=== PATIENT | female | born 1950 | race Caucasian/White ===

== ENCOUNTER 2021-07-14 20:15 | Inpatient (IN) | payer MEDICARE ==
[~2021-07-14] VITALS: Ht 167.6 cm; Wt 104.0 kg
--- NOTE | 2021-07-14 21:11 | NUR ---
pt bib remsa with c/o sob and chills x 3 days with increased rr x today, estela reports family have been sick with cough cold s/s, no covid vacine.
[2021-07-14 21:20] LABS: BASOPHILS % (AUTO) 0 % (0-1); EOSINOPHILS % (AUTO) 0 % (1-7); LYMPHOCYTES % (AUTO) 5 % (22-44); MEAN CORPUSCULAR HGB CONC 33.3 g/dL (32.4-35.8); MEAN PLATELET VOLUME 7.7 fL (7.4-10.4); MONOCYTES % (AUTO) 5 % (2-9); NEUTROPHILS % (AUTO) 89 % (42-75); PLATELET COUNT 390 x10^3/uL (130-400); RED BLOOD COUNT 4.78 x10^6/uL (3.82-5.3); RED CELL DISTRIBUTION WIDTH 13.8 % (9.6-15.2)
[2021-07-14 21:36] LABS: ALANINE AMINOTRANSFERASE 27 U/L (12-78); ALBUMIN 1.9 g/dL (3.4-5.0); ANION GAP 6 mmol/L (5-15); CALCIUM 8.4 mg/dL (8.5-10.1); CHLORIDE 104 mmol/L (98-107); CREATININE 0.92 mg/dL (0.55-1.02)
[2021-07-14 21:43] LABS: ALKALINE PHOSPHATASE 143 U/L (45-117); BILIRUBIN,TOTAL 0.7 mg/dL (0.2-1.0); TOTAL PROTEIN 7.1 g/dL (6.4-8.2)
--- NOTE | 2021-07-14 22:03 | NUR ---
pt in nad at this time remains on 15 l NRB SATS 93%
[2021-07-14] MEDS ORDERED: DOXYCYCLINE 100 MG in DEXTROSE 5% 250 ML IV ONE (22:30)
[2021-07-14] MEDS ORDERED: LACTATED RINGERS 500 ML IVBOLUS ONE (22:30)
--- NOTE | 2021-07-14 22:49 | NUR ---
IV ABX INFUSING BLOOD CULTURES DRAWN PRIOR
[2021-07-15] MEDS ORDERED: ONDANSETRON 2MG/ML, 2ML IVPush PRN
[2021-07-15] MEDS ORDERED: ACETAMINOPHEN 325 MG TABLET PO PRN
[2021-07-15] MEDS ORDERED: LABETALOL 5MG/ML, 20ML IVPush PRN
[2021-07-15] MEDS ORDERED: MELATONIN 5 MG TABLET PO PRN
[2021-07-15 00:04] VITALS: BP 117/72
[2021-07-15 00:08] LABS: TROPONIN I < 0.015 ng/mL (0.000-0.045)
[2021-07-15] MEDS: CEFTRIAXONE 2 GM in DEXTROSE 5% 50 ML IVPB SCH (01:25)
[2021-07-15] MEDS: DEXAMETHASONE 4 MG/ML, 1ML IVPush SCH ×2 (01:27→08:57)
[2021-07-15] MEDS: ENOXAPARIN 40 MG/0.4 ML SQ SCH ×2 (01:30→12:54)
[2021-07-15 05:25] LABS: RAPID INFLUENZA A Negative (Negative); RAPID INFLUENZA B Negative (Negative)
[2021-07-15 05:40] LABS: BASOPHILS % (AUTO) 0 % (0-1); EOSINOPHILS % (AUTO) 0 % (1-7); LYMPHOCYTES % (AUTO) 5 % (22-44); MEAN CORPUSCULAR HEMOGLOBIN 29.9 pg (27.0-34.8); MEAN CORPUSCULAR HGB CONC 32.9 g/dL (32.4-35.8); MEAN PLATELET VOLUME 8.1 fL (7.4-10.4); MONOCYTES % (AUTO) 5 % (2-9); NEUTROPHILS % (AUTO) 90 % (42-75); PLATELET COUNT 378 x10^3/uL (130-400); RED BLOOD COUNT 4.51 x10^6/uL (3.82-5.3); RED CELL DISTRIBUTION WIDTH 13.6 % (9.6-15.2)
[2021-07-15 05:47] LABS: ANION GAP 6 mmol/L (5-15); CALCIUM 8.5 mg/dL (8.5-10.1); CHLORIDE 103 mmol/L (98-107)
[2021-07-15 08:15] VITALS: BP 118/70
[2021-07-15] MEDS: DOXYCYCLINE 100MG TABLET PO SCH ×2 (08:57→21:56)
[2021-07-15 14:37] LABS: ALBUMIN 1.7 g/dL (3.4-5.0); BILIRUBIN, DIRECT 0.2 mg/dL (0.1-0.2); BILIRUBIN,INDIRECT 0.2 mg/dL (0.0-2.0); BILIRUBIN,TOTAL 0.4 mg/dL (0.2-1.0); TOTAL PROTEIN 6.7 g/dL (6.4-8.2)
[2021-07-15 15:00] VITALS: BP 112/74
[2021-07-15] MEDS ORDERED: REMDESIVIR 200 MG in SODIUM CHLORIDE 0.9% 250 ML IVPB ONE (15:30)
[2021-07-15 18:48] VITALS: BP 107/71
[2021-07-15] MEDS: INSULIN LISPRO 100 UNITS/ML, PEN SQ-INSULIN SCH (21:57)
[2021-07-16 00:27] VITALS: BP 114/75
[2021-07-16] MEDS: ENOXAPARIN 40 MG/0.4 ML SQ SCH ×2 (00:29→14:06)
[2021-07-16] MEDS: CEFTRIAXONE 2 GM in DEXTROSE 5% 50 ML IVPB SCH (00:29)
[2021-07-16 05:46] LABS: BASOPHILS % (AUTO) 0 % (0-1); EOSINOPHILS % (AUTO) 0 % (1-7); LYMPHOCYTES % (AUTO) 7 % (22-44); MEAN CORPUSCULAR HEMOGLOBIN 30.3 pg (27.0-34.8); MEAN CORPUSCULAR HGB CONC 33.3 g/dL (32.4-35.8); MONOCYTES % (AUTO) 7 % (2-9); NEUTROPHILS % (AUTO) 86 % (42-75); PLATELET COUNT 464 x10^3/uL (130-400); RED BLOOD COUNT 4.43 x10^6/uL (3.82-5.3); RED CELL DISTRIBUTION WIDTH 13.7 % (9.6-15.2)
[2021-07-16 05:57] LABS: ANION GAP 7 mmol/L (5-15); CHLORIDE 105 mmol/L (98-107)
[2021-07-16 05:59] LABS: CREATININE 1.16 mg/dL (0.55-1.02)
[2021-07-16] MEDS: INSULIN LISPRO 100 UNITS/ML, PEN SQ-INSULIN SCH ×4 (08:00→20:33)
[2021-07-16] MEDS: DOXYCYCLINE 100MG TABLET PO SCH ×2 (09:00→20:33)
[2021-07-16] MEDS: DEXAMETHASONE 4 MG/ML, 1ML IVPush SCH (09:00)
[2021-07-16 09:35] VITALS: BP 106/72
[2021-07-16 12:25] VITALS: BP 122/68
[2021-07-16 14:19] LABS: ALANINE AMINOTRANSFERASE 51 U/L (12-78); ALBUMIN 1.9 g/dL (3.4-5.0)
[2021-07-16 14:21] LABS: ALKALINE PHOSPHATASE 137 U/L (45-117); BILIRUBIN,TOTAL 0.3 mg/dL (0.2-1.0); TOTAL PROTEIN 6.9 g/dL (6.4-8.2)
[2021-07-16] MEDS: REMDESIVIR 100 MG in SODIUM CHLORIDE 0.9% 250 ML IVPB SCH (16:00)
[2021-07-16 18:49] VITALS: BP 118/76
[2021-07-16 21:35] VITALS: BP 127/78
[2021-07-16 22:57] VITALS: BP 118/70
[2021-07-17] MEDS: ENOXAPARIN 40 MG/0.4 ML SQ SCH (00:46)
[2021-07-17] MEDS: CEFTRIAXONE 2 GM in DEXTROSE 5% 50 ML IVPB SCH ×2 (00:46→23:14)
[2021-07-17 05:34] LABS: CHLORIDE 108 mmol/L (98-107)
[2021-07-17 05:40] LABS: ALBUMIN 1.6 g/dL (3.4-5.0); ALKALINE PHOSPHATASE 126 U/L (45-117); BILIRUBIN,TOTAL 0.4 mg/dL (0.2-1.0); CALCIUM 8.6 mg/dL (8.5-10.1); CREATININE 1.06 mg/dL (0.55-1.02); TOTAL PROTEIN 6.9 g/dL (6.4-8.2)
[2021-07-17 05:51] LABS: ALANINE AMINOTRANSFERASE 54 U/L (12-78)
[2021-07-17 06:27] LABS: ANION GAP 7 mmol/L (5-15)
[2021-07-17 07:32] VITALS: BP 135/80
[2021-07-17] MEDS: INSULIN LISPRO 100 UNITS/ML, PEN SQ-INSULIN SCH ×4 (07:40→21:50)
[2021-07-17] MEDS: DEXAMETHASONE 4 MG/ML, 1ML IVPush SCH (08:02)
[2021-07-17] MEDS: DOXYCYCLINE 100MG TABLET PO SCH ×2 (08:02→21:49)
[2021-07-17] MEDS: ENOXAPARIN 60 MG/0.6 ML SQ SCH (12:02)
[2021-07-17] MEDS ORDERED: SODIUM CHLORIDE 0.9% 1,000 ML IV SCH (16:30)
[2021-07-17] MEDS: REMDESIVIR 100 MG in SODIUM CHLORIDE 0.9% 250 ML IVPB SCH (17:39)
[2021-07-17 19:05] VITALS: BP 147/81
[2021-07-17] MEDS: NYSTATIN 500,000 UNITS/5 ML UDC PO SCH (21:49)
[2021-07-17 22:52] VITALS: BP 137/84
[2021-07-18] MEDS: ENOXAPARIN 60 MG/0.6 ML SQ SCH ×2 (00:10→14:17)
[2021-07-18] MEDS: NYSTATIN 500,000 UNITS/5 ML UDC PO SCH ×4 (05:46→21:48)
[2021-07-18 06:17] LABS: MEAN CORPUSCULAR HEMOGLOBIN 30.3 pg (27.0-34.8); MEAN CORPUSCULAR HGB CONC 33.2 g/dL (32.4-35.8); MEAN PLATELET VOLUME 7.4 fL (7.4-10.4); PLATELET COUNT 558 x10^3/uL (130-400); RED BLOOD COUNT 4.65 x10^6/uL (3.82-5.3); RED CELL DISTRIBUTION WIDTH 13.9 % (9.6-15.2)
[2021-07-18 06:27] LABS: CHLORIDE 110 mmol/L (98-107)
[2021-07-18 06:30] LABS: ANION GAP 10 mmol/L (5-15); CREATININE 0.94 mg/dL (0.55-1.02)
[2021-07-18 06:54] LABS: BAND#(MANUAL) 0.33 x10^3/uL; BANDS%(MANUAL) 2 % (0-7); LYMPH#(MANUAL) 0.66 x10^3/uL (1-3.4); LYMPHS% (MANUAL) 4 % (22-44); METAMYELOCYTES# (MANUAL) 0.33 x10^3/uL (0-0); METAMYELOCYTES% (MANUAL) 2 % (0-1); MONOS#(MANUAL) 1.15 x10^3/uL (0.3-2.7); MONOS% (MANUAL) 7 % (2-9); SEG#(MANUAL) 13.94 x10^3/uL (1.8-6.8); SEGS% (MANUAL) 85 % (42-75)
[2021-07-18 06:55] LABS: <PLATELET ESTIMATE> INCREASED; <PLT MORPHOLOGY> NORMAL PLT MORPH; <RBC MORPHOLOGY> NORMAL
[2021-07-18 07:56] VITALS: BP 142/81
[2021-07-18] MEDS ORDERED: ETOMIDATE 20 MG/10 ML ONE ×2 (08:00→09:00)
[2021-07-18] MEDS ORDERED: PROPOFOL 10 MG/ML, 100ML IV ONE ×2 (08:00→09:00)
[2021-07-18] MEDS ORDERED: MIDAZOLAM 1 MG/ML, 5ML ONE ×2 (08:00→09:00)
[2021-07-18] MEDS ORDERED: PROPOFOL 10 MG/ML, 20ML ONE ×2 (08:00→09:00)
[2021-07-18] MEDS: ASCORBIC ACID 500 MG TABLET PO SCH ×3 (08:00→17:25)
[2021-07-18] MEDS: DEXAMETHASONE 4 MG/ML, 1ML IVPush SCH (08:51)
[2021-07-18] MEDS: CHOLECALCIFEROL 5,000u TAB PO SCH ×2 (08:51→09:00)
[2021-07-18] MEDS: ZINC SULFATE 220 MG CAPSULE PO SCH ×2 (08:51→09:00)
[2021-07-18] MEDS: INSULIN LISPRO 100 UNITS/ML, PEN SQ-INSULIN SCH ×4 (08:52→21:51)
[2021-07-18 10:21] LABS: CHLORIDE 112 mmol/L (98-107)
[2021-07-18 10:28] LABS: ANION GAP 9 mmol/L (5-15); CALCIUM 9.1 mg/dL (8.5-10.1); CREATININE 0.84 mg/dL (0.55-1.02)
[2021-07-18 10:29] LABS: ALANINE AMINOTRANSFERASE 40 U/L (12-78); ALBUMIN 1.9 g/dL (3.4-5.0); ALKALINE PHOSPHATASE 139 U/L (45-117); BILIRUBIN,TOTAL 0.4 mg/dL (0.2-1.0); TOTAL PROTEIN 6.7 g/dL (6.4-8.2)
[2021-07-18] MEDS ORDERED: LIDOCAINE-MPF 1%, 2ML ENDO PRN (11:00)
[2021-07-18] MEDS ORDERED: PHARMACY MAY ADJ FOR RENAL FX MC SCH (11:00)
[2021-07-18] MEDS ORDERED: ONDANSETRON 2MG/ML, 2ML IV PRN (11:00)
[2021-07-18] MEDS ORDERED: GLUCAGON 1 MG IM PRN (11:00)
[2021-07-18] MEDS ORDERED: FILTER 0.22 MICRON IV ONE (11:00)
[2021-07-18] MEDS ORDERED: DEXTROSE 4 GM TAB.CHEW PO PRN (11:00)
[2021-07-18] MEDS ORDERED: NOREPINEPHRINE 8 MG in SODIUM CHLORIDE 0.9% 242 ML IV PRN (11:00)
[2021-07-18] MEDS ORDERED: PROPOFOL 100 ML IV PRN (11:00)
[2021-07-18] MEDS ORDERED: DEXTROSE 50%, 50ML SYRINGE IVPush PRN (11:00)
[2021-07-18] MEDS ORDERED: TOCILIZUMAB 800 MG in SODIUM CHLORIDE 0.9% 100 ML IVPB ONE (11:00)
[2021-07-18] MEDS ORDERED: NOREPINEPHRINE 1 MG/ML, 4ML ONE (11:07)
[2021-07-18 11:32] LABS: FIO2 100 %
[2021-07-18] MEDS: MIDAZOLAM HCL 50 MG in SODIUM CHLORIDE 0.9% 40 ML IV PRN (12:13)
[2021-07-18] MEDS: SODIUM CHLORIDE FLUSH 10ML SYR IVF SCH ×2 (13:51→21:48)
[2021-07-18] MEDS: FENTANYL PF 1,000 MCG in SODIUM CHLORIDE 0.9% 80 ML IV PRN (14:18)
[2021-07-18] MEDS ORDERED: POTASSIUM CHLORIDE 20 MEQ PACKET PO SCH (15:30)
[2021-07-18] MEDS ORDERED: INSULIN LISPRO 100 UNITS/ML, PEN SQ-INSULIN SCH (16:00)
[2021-07-18] MEDS: REMDESIVIR 100 MG in SODIUM CHLORIDE 0.9% 250 ML IVPB SCH (17:22)
[2021-07-18] MEDS: FUROSEMIDE 40 MG/4 ML IV SCH (17:25)
[2021-07-18] MEDS ORDERED: GLYCOPYRROLATE 0.4 MG/2 ML, 2ML IV ONE ×2 (20:30→21:30)
[2021-07-18] MEDS ORDERED: INSULIN GLARGINE 100 UNITS/ML, PEN SQ-INSULIN SCH (21:00)
[2021-07-19] MEDS: ENOXAPARIN 60 MG/0.6 ML SQ SCH ×2 (00:01→13:07)
[2021-07-19] MEDS: CEFTRIAXONE 2 GM in DEXTROSE 5% 50 ML IVPB SCH (00:01)
[2021-07-19] MEDS: MIDAZOLAM HCL 50 MG in SODIUM CHLORIDE 0.9% 40 ML IV PRN ×2 (00:02→06:04)
[2021-07-19] MEDS: INSULIN LISPRO 100 UNITS/ML, PEN SQ-INSULIN SCH ×4 (05:09→21:22)
[2021-07-19] MEDS: NYSTATIN 500,000 UNITS/5 ML UDC PO SCH ×4 (05:42→21:22)
[2021-07-19 05:49] LABS: BASOPHILS % (AUTO) 0 % (0-1); EOSINOPHILS % (AUTO) 0 % (1-7); LYMPHOCYTES % (AUTO) 8 % (22-44); MEAN CORPUSCULAR HGB CONC 32.9 g/dL (32.4-35.8); MEAN PLATELET VOLUME 7.6 fL (7.4-10.4); MONOCYTES % (AUTO) 3 % (2-9); NEUTROPHILS % (AUTO) 88 % (42-75); PLATELET COUNT 441 x10^3/uL (130-400); RED BLOOD COUNT 4.02 x10^6/uL (3.82-5.3); RED CELL DISTRIBUTION WIDTH 13.7 % (9.6-15.2)
[2021-07-19 05:55] LABS: ALBUMIN 1.5 g/dL (3.4-5.0); CALCIUM 8.5 mg/dL (8.5-10.1); CHLORIDE 112 mmol/L (98-107)
[2021-07-19 06:01] LABS: ALANINE AMINOTRANSFERASE 29 U/L (12-78); ALKALINE PHOSPHATASE 108 U/L (45-117); ANION GAP 8 mmol/L (5-15); BILIRUBIN,TOTAL 0.3 mg/dL (0.2-1.0); CREATININE 1.12 mg/dL (0.55-1.02); TOTAL PROTEIN 5.6 g/dL (6.4-8.2)
[2021-07-19] MEDS ORDERED: ATROPINE SYRINGE 0.1 MG/ML, 10ML ONE (08:16)
[2021-07-19] MEDS ORDERED: DOPAMINE/D5W PMX 250 ML IV PRN (08:30)
[2021-07-19] MEDS ORDERED: ATROPINE SYRINGE 0.1 MG/ML, 10ML IVPush PRN (08:30)
[2021-07-19] MEDS: ASCORBIC ACID 500 MG TABLET PO SCH ×2 (08:55→18:48)
[2021-07-19] MEDS: CHOLECALCIFEROL 5,000u TAB PO SCH (08:55)
[2021-07-19] MEDS: FUROSEMIDE 40 MG/4 ML IV SCH ×2 (08:55→17:34)
[2021-07-19] MEDS: DEXAMETHASONE 4 MG/ML, 1ML IVPush SCH (08:56)
[2021-07-19] MEDS: ZINC SULFATE 220 MG CAPSULE PO SCH (08:56)
[2021-07-19] MEDS: INSULIN GLARGINE 100 UNITS/ML, PEN SQ-INSULIN SCH ×2 (08:58→21:21)
--- NOTE | 2021-07-19 10:26 | NUR ---
- TF per RD recs: Vital HP w/ end goal rate of 45 mL/hr (ON propofol); 50 mL/hr (OFF propofol). Addendum: 07/19/21 at [address] Amended: Links added.
[2021-07-19] MEDS: SODIUM CHLORIDE FLUSH 10ML SYR IVF SCH ×2 (13:07→21:21)
[2021-07-19] MEDS: REMDESIVIR 100 MG in SODIUM CHLORIDE 0.9% 250 ML IVPB SCH (17:34)
[2021-07-20] MEDS: CEFTRIAXONE 2 GM in DEXTROSE 5% 50 ML IVPB SCH (00:17)
[2021-07-20] MEDS: ENOXAPARIN 60 MG/0.6 ML SQ SCH ×2 (00:17→12:24)
[2021-07-20] MEDS: MIDAZOLAM HCL 50 MG in SODIUM CHLORIDE 0.9% 40 ML IV PRN (00:20)
[2021-07-20] MEDS: INSULIN LISPRO 100 UNITS/ML, PEN SQ-INSULIN SCH ×4 (04:38→21:24)
[2021-07-20 05:16] LABS: BASOPHILS % (AUTO) 0 % (0-1); EOSINOPHILS % (AUTO) 0 % (1-7); LYMPHOCYTES % (AUTO) 8 % (22-44); MEAN CORPUSCULAR HGB CONC 33.1 g/dL (32.4-35.8); MEAN PLATELET VOLUME 7.5 fL (7.4-10.4); MONOCYTES % (AUTO) 5 % (2-9); NEUTROPHILS % (AUTO) 87 % (42-75); PLATELET COUNT 482 x10^3/uL (130-400); RED BLOOD COUNT 4.51 x10^6/uL (3.82-5.3); RED CELL DISTRIBUTION WIDTH 13.8 % (9.6-15.2)
[2021-07-20 05:29] LABS: CALCIUM 8.6 mg/dL (8.5-10.1); CHLORIDE 112 mmol/L (98-107)
[2021-07-20 05:33] LABS: ANION GAP 7 mmol/L (5-15); CREATININE 1.19 mg/dL (0.55-1.02)
[2021-07-20] MEDS: NYSTATIN 500,000 UNITS/5 ML UDC PO SCH (06:31)
[2021-07-20] MEDS: FENTANYL PF 1,000 MCG in SODIUM CHLORIDE 0.9% 80 ML IV PRN (08:52)
[2021-07-20] MEDS: ASCORBIC ACID 500 MG TABLET PO SCH ×2 (08:52→17:40)
[2021-07-20] MEDS: CHOLECALCIFEROL 5,000u TAB PO SCH (08:53)
[2021-07-20] MEDS: POTASSIUM CHLORIDE 20 MEQ PACKET PO SCH ×2 (08:53→17:40)
[2021-07-20] MEDS: ZINC SULFATE 220 MG CAPSULE PO SCH (08:53)
[2021-07-20] MEDS: DEXAMETHASONE 4 MG/ML, 1ML IVPush SCH (08:53)
[2021-07-20] MEDS: SODIUM CHLORIDE FLUSH 10ML SYR IVF SCH ×2 (08:54→21:23)
[2021-07-20] MEDS: INSULIN GLARGINE 100 UNITS/ML, PEN SQ-INSULIN SCH ×2 (08:55→21:24)
[2021-07-20] MEDS ORDERED: FUROSEMIDE 40 MG/4 ML IV SCH (09:00)
[2021-07-20] MEDS: FLUCONAZOLE 40 MG/ML ORAL SUSP PO SCH (10:14)
[2021-07-20] MEDS ORDERED: BISACODYL 10 MG SUPP PR PRN (10:30)
[2021-07-20] MEDS: LACTULOSE 20 GM/30 ML UDC PO PRN (12:24)
[2021-07-20] MEDS: SENNA/DOCUSATE TABLET PO SCH (21:23)
[2021-07-21] MEDS: CEFTRIAXONE 2 GM in DEXTROSE 5% 50 ML IVPB SCH (00:18)
[2021-07-21] MEDS: ENOXAPARIN 60 MG/0.6 ML SQ SCH ×2 (00:19→11:20)
[2021-07-21] MEDS: INSULIN LISPRO 100 UNITS/ML, PEN SQ-INSULIN SCH ×4 (04:29→21:48)
[2021-07-21 04:47] LABS: BASOPHILS % (AUTO) 1 % (0-1); EOSINOPHILS % (AUTO) 0 % (1-7); LYMPHOCYTES % (AUTO) 6 % (22-44); MEAN CORPUSCULAR HEMOGLOBIN 30.3 pg (27.0-34.8); MEAN CORPUSCULAR HGB CONC 32.8 g/dL (32.4-35.8); MEAN PLATELET VOLUME 7.7 fL (7.4-10.4); MONOCYTES % (AUTO) 5 % (2-9); NEUTROPHILS % (AUTO) 88 % (42-75); PLATELET COUNT 466 x10^3/uL (130-400); RED BLOOD COUNT 4.53 x10^6/uL (3.82-5.3); RED CELL DISTRIBUTION WIDTH 14.2 % (9.6-15.2)
[2021-07-21 04:56] LABS: ANION GAP 6 mmol/L (5-15); CALCIUM 8.6 mg/dL (8.5-10.1); CHLORIDE 113 mmol/L (98-107); CREATININE 1.32 mg/dL (0.55-1.02); TRIGLYCERIDES 121 mg/dL (50-200)
[2021-07-21] MEDS: FENTANYL PF 1,000 MCG in SODIUM CHLORIDE 0.9% 80 ML IV PRN (06:14)
[2021-07-21] MEDS: DOCUSATE 100 MG CAPSULE PO SCH (09:00)
[2021-07-21] MEDS ORDERED: METHYLNALTREXONE 12 MG/0.6 ML SYR SQ SCH (09:00)
[2021-07-21] MEDS: ASCORBIC ACID 500 MG TABLET PO SCH ×2 (09:21→16:53)
[2021-07-21] MEDS: DOCUSATE 50 MG/5 ML, 10ML UDC NG SCH (09:21)
[2021-07-21] MEDS: ZINC SULFATE 220 MG CAPSULE PO SCH (09:22)
[2021-07-21] MEDS: CHOLECALCIFEROL 5,000u TAB PO SCH (09:22)
[2021-07-21] MEDS: DEXAMETHASONE 4 MG/ML, 1ML IVPush SCH (09:22)
[2021-07-21] MEDS: INSULIN GLARGINE 100 UNITS/ML, PEN SQ-INSULIN SCH ×2 (09:24→21:47)
[2021-07-21] MEDS: FLUCONAZOLE 40 MG/ML ORAL SUSP PO SCH (10:00)
[2021-07-21] MEDS: SODIUM CHLORIDE FLUSH 10ML SYR IVF SCH ×2 (12:33→21:47)
[2021-07-21] MEDS: LACTULOSE 20 GM/30 ML UDC PO PRN (21:47)
[2021-07-21] MEDS: SENNA/DOCUSATE TABLET PO SCH (21:47)
[2021-07-22] MEDS: ENOXAPARIN 60 MG/0.6 ML SQ SCH ×2 (00:56→11:30)
[2021-07-22] MEDS: FENTANYL PF 1,000 MCG in SODIUM CHLORIDE 0.9% 80 ML IV PRN (00:57)
[2021-07-22] MEDS: INSULIN LISPRO 100 UNITS/ML, PEN SQ-INSULIN SCH ×4 (04:24→21:13)
[2021-07-22 05:36] LABS: BASOPHILS % (AUTO) 1 % (0-1); EOSINOPHILS % (AUTO) 0 % (1-7); LYMPHOCYTES % (AUTO) 8 % (22-44); MEAN CORPUSCULAR HEMOGLOBIN 29.6 pg (27.0-34.8); MEAN CORPUSCULAR HGB CONC 32.1 g/dL (32.4-35.8); MEAN PLATELET VOLUME 7.9 fL (7.4-10.4); MONOCYTES % (AUTO) 6 % (2-9); NEUTROPHILS % (AUTO) 85 % (42-75); PLATELET COUNT 425 x10^3/uL (130-400); RED BLOOD COUNT 4.61 x10^6/uL (3.82-5.3)
[2021-07-22 05:44] LABS: ANION GAP 5 mmol/L (5-15); CALCIUM 8.6 mg/dL (8.5-10.1); CHLORIDE 115 mmol/L (98-107); CREATININE 1.22 mg/dL (0.55-1.02)
[2021-07-22] MEDS: INSULIN GLARGINE 100 UNITS/ML, PEN SQ-INSULIN SCH ×2 (08:58→21:00)
[2021-07-22] MEDS: DOCUSATE 100 MG CAPSULE PO SCH (09:00)
[2021-07-22] MEDS: CHOLECALCIFEROL 5,000u TAB PO SCH (09:52)
[2021-07-22] MEDS: DOCUSATE 50 MG/5 ML, 10ML UDC NG SCH (09:52)
[2021-07-22] MEDS: THIAMINE 100MG TABLET PO SCH (09:52)
[2021-07-22] MEDS: SODIUM CHLORIDE FLUSH 10ML SYR IVF SCH ×2 (09:52→21:00)
[2021-07-22] MEDS: ASCORBIC ACID 500 MG TABLET PO SCH ×2 (09:52→16:11)
[2021-07-22] MEDS: DEXAMETHASONE 4 MG/ML, 1ML IVPush SCH (09:52)
[2021-07-22] MEDS: ZINC SULFATE 220 MG CAPSULE PO SCH (09:52)
[2021-07-22] MEDS: FLUCONAZOLE 40 MG/ML ORAL SUSP PO SCH (09:54)
[2021-07-23] MEDS: ENOXAPARIN 60 MG/0.6 ML SQ SCH ×2 (00:48→12:12)
[2021-07-23] MEDS: INSULIN LISPRO 100 UNITS/ML, PEN SQ-INSULIN SCH ×4 (04:00→20:25)
[2021-07-23 04:02] LABS: BASOPHILS % (AUTO) 1 % (0-1); EOSINOPHILS % (AUTO) 0 % (1-7); LYMPHOCYTES % (AUTO) 6 % (22-44); MEAN CORPUSCULAR HEMOGLOBIN 29.9 pg (27.0-34.8); MEAN CORPUSCULAR HGB CONC 32.4 g/dL (32.4-35.8); MEAN PLATELET VOLUME 7.8 fL (7.4-10.4); MONOCYTES % (AUTO) 6 % (2-9); NEUTROPHILS % (AUTO) 87 % (42-75); PLATELET COUNT 373 x10^3/uL (130-400); RED BLOOD COUNT 4.54 x10^6/uL (3.82-5.3)
[2021-07-23 04:16] LABS: ALANINE AMINOTRANSFERASE 36 U/L (12-78); ALBUMIN 1.8 g/dL (3.4-5.0); ANION GAP 2 mmol/L (5-15); CALCIUM 8.4 mg/dL (8.5-10.1); CHLORIDE 117 mmol/L (98-107); CREATININE 0.95 mg/dL (0.55-1.02)
[2021-07-23 04:18] LABS: ALKALINE PHOSPHATASE 100 U/L (45-117); BILIRUBIN,TOTAL 0.5 mg/dL (0.2-1.0); TOTAL PROTEIN 5.7 g/dL (6.4-8.2)
[2021-07-23] MEDS: ASCORBIC ACID 500 MG TABLET PO SCH ×2 (08:00→16:27)
[2021-07-23] MEDS: DOCUSATE 50 MG/5 ML, 10ML UDC NG SCH (08:19)
[2021-07-23] MEDS: INSULIN GLARGINE 100 UNITS/ML, PEN SQ-INSULIN SCH ×2 (09:00→20:24)
[2021-07-23] MEDS: DOCUSATE 100 MG CAPSULE PO SCH (09:00)
[2021-07-23] MEDS: ZINC SULFATE 220 MG CAPSULE PO SCH (09:00)
[2021-07-23] MEDS: CHOLECALCIFEROL 5,000u TAB PO SCH (09:00)
[2021-07-23] MEDS: SODIUM CHLORIDE FLUSH 10ML SYR IVF SCH ×2 (09:00→20:25)
[2021-07-23] MEDS: THIAMINE 100MG TABLET PO SCH (09:00)
[2021-07-23] MEDS: FLUCONAZOLE 40 MG/ML ORAL SUSP PO SCH (09:00)
[2021-07-23] MEDS: DEXAMETHASONE 4 MG/ML, 1ML IVPush SCH (09:00)
[2021-07-23 11:47] VITALS: BP 117/72
[2021-07-23 14:59] VITALS: BP 120/76
[2021-07-23 20:25] VITALS: BP 128/78
[2021-07-24 03:42] VITALS: BP 129/81
[2021-07-24] MEDS: ENOXAPARIN 60 MG/0.6 ML SQ SCH ×2 (04:00→15:58)
[2021-07-24] MEDS: INSULIN LISPRO 100 UNITS/ML, PEN SQ-INSULIN SCH ×4 (04:00→22:07)
[2021-07-24 05:11] LABS: BASOPHILS % (AUTO) 1 % (0-1); EOSINOPHILS % (AUTO) 0 % (1-7); LYMPHOCYTES % (AUTO) 9 % (22-44); MEAN CORPUSCULAR HEMOGLOBIN 29.4 pg (27.0-34.8); MEAN CORPUSCULAR HGB CONC 31.9 g/dL (32.4-35.8); MEAN PLATELET VOLUME 8.1 fL (7.4-10.4); MONOCYTES % (AUTO) 6 % (2-9); NEUTROPHILS % (AUTO) 84 % (42-75); PLATELET COUNT 292 x10^3/uL (130-400); RED BLOOD COUNT 4.35 x10^6/uL (3.82-5.3); RED CELL DISTRIBUTION WIDTH 14.1 % (9.6-15.2)
[2021-07-24 05:19] LABS: ANION GAP 3 mmol/L (5-15); CALCIUM 8.7 mg/dL (8.5-10.1); CHLORIDE 114 mmol/L (98-107); CREATININE 0.81 mg/dL (0.55-1.02)
[2021-07-24 08:53] VITALS: BP 100/67
[2021-07-24] MEDS: ZINC SULFATE 220 MG CAPSULE PO SCH (09:00)
[2021-07-24] MEDS: DOCUSATE 100 MG CAPSULE PO SCH ×2 (09:00→10:05)
[2021-07-24] MEDS: DOCUSATE 50 MG/5 ML, 10ML UDC NG SCH (09:00)
[2021-07-24] MEDS: SODIUM CHLORIDE FLUSH 10ML SYR IVF SCH ×2 (09:00→22:10)
[2021-07-24] MEDS: FLUCONAZOLE 40 MG/ML ORAL SUSP PO SCH (09:27)
[2021-07-24] MEDS: DEXAMETHASONE 4 MG/ML, 1ML IVPush SCH (09:56)
[2021-07-24] MEDS: INSULIN GLARGINE 100 UNITS/ML, PEN SQ-INSULIN SCH ×2 (09:58→22:07)
[2021-07-24] MEDS: ASCORBIC ACID 500 MG TABLET PO SCH ×2 (10:04→15:58)
[2021-07-24] MEDS: CHOLECALCIFEROL 5,000u TAB PO SCH (10:04)
[2021-07-24] MEDS: THIAMINE 100MG TABLET PO SCH (10:05)
[2021-07-24] MEDS ORDERED: METOCLOPRAMIDE 5 MG/ML, 2ML IVPush PRN (12:00)
[2021-07-24 13:34] VITALS: BP 129/82
[2021-07-24 18:45] VITALS: BP 102/62
[2021-07-25 01:26] VITALS: BP 123/84
[2021-07-25] MEDS: ENOXAPARIN 60 MG/0.6 ML SQ SCH ×2 (04:07→15:58)
[2021-07-25] MEDS: INSULIN LISPRO 100 UNITS/ML, PEN SQ-INSULIN SCH ×4 (04:09→21:42)
[2021-07-25 08:57] VITALS: BP 106/68
[2021-07-25] MEDS: DOCUSATE 100 MG CAPSULE PO SCH (09:00)
[2021-07-25] MEDS: ZINC SULFATE 220 MG CAPSULE PO SCH (09:18)
[2021-07-25] MEDS: ASCORBIC ACID 500 MG TABLET PO SCH ×2 (09:18→15:58)
[2021-07-25] MEDS: THIAMINE 100MG TABLET PO SCH (09:19)
[2021-07-25] MEDS: SODIUM CHLORIDE FLUSH 10ML SYR IVF SCH ×2 (09:20→21:41)
[2021-07-25] MEDS: DEXAMETHASONE 4 MG/ML, 1ML IVPush SCH (09:20)
[2021-07-25] MEDS: FLUCONAZOLE 40 MG/ML ORAL SUSP PO SCH (09:20)
[2021-07-25] MEDS: CHOLECALCIFEROL 5,000u TAB PO SCH (09:20)
[2021-07-25] MEDS: DOCUSATE 50 MG/5 ML, 10ML UDC NG SCH (09:21)
[2021-07-25] MEDS: INSULIN GLARGINE 100 UNITS/ML, PEN SQ-INSULIN SCH ×2 (10:06→21:41)
[2021-07-25 10:30] LABS: BASOPHILS % (AUTO) 0 % (0-1); EOSINOPHILS % (AUTO) 1 % (1-7); LYMPHOCYTES % (AUTO) 10 % (22-44); MEAN CORPUSCULAR HEMOGLOBIN 30.1 pg (27.0-34.8); MEAN CORPUSCULAR HGB CONC 32.7 g/dL (32.4-35.8); MEAN PLATELET VOLUME 8.4 fL (7.4-10.4); MONOCYTES % (AUTO) 7 % (2-9); NEUTROPHILS % (AUTO) 83 % (42-75); PLATELET COUNT 207 x10^3/uL (130-400); RED BLOOD COUNT 4.31 x10^6/uL (3.82-5.3); RED CELL DISTRIBUTION WIDTH 13.9 % (9.6-15.2)
[2021-07-25 10:42] LABS: ANION GAP 6 mmol/L (5-15); CALCIUM 8.8 mg/dL (8.5-10.1); CHLORIDE 110 mmol/L (98-107)
[2021-07-25 10:45] LABS: ALANINE AMINOTRANSFERASE 30 U/L (12-78); ALKALINE PHOSPHATASE 81 U/L (45-117); BILIRUBIN,TOTAL 0.6 mg/dL (0.2-1.0); CREATININE 0.88 mg/dL (0.55-1.02); TOTAL PROTEIN 5.5 g/dL (6.4-8.2)
[2021-07-25 13:50] VITALS: BP 106/72
[2021-07-25 14:43] VITALS: BP 110/72
[2021-07-25] MEDS ORDERED: ARTIFICIAL TEARS 15 DROP/ML BOTTLE EACHEYE PRN (16:00)
[2021-07-25 20:52] VITALS: BP 134/81
[2021-07-26 00:03] VITALS: BP 128/79
[2021-07-26] MEDS: ENOXAPARIN 60 MG/0.6 ML SQ SCH ×2 (04:14→17:06)
[2021-07-26] MEDS: INSULIN LISPRO 100 UNITS/ML, PEN SQ-INSULIN SCH ×4 (04:18→22:27)
[2021-07-26 04:55] LABS: BASOPHILS % (AUTO) 1 % (0-1); EOSINOPHILS % (AUTO) 0 % (1-7); LYMPHOCYTES % (AUTO) 10 % (22-44); MEAN CORPUSCULAR HEMOGLOBIN 29.8 pg (27.0-34.8); MEAN CORPUSCULAR HGB CONC 32.6 g/dL (32.4-35.8); MEAN PLATELET VOLUME 8.6 fL (7.4-10.4); MONOCYTES % (AUTO) 7 % (2-9); NEUTROPHILS % (AUTO) 82 % (42-75); PLATELET COUNT 209 x10^3/uL (130-400); RED BLOOD COUNT 4.18 x10^6/uL (3.82-5.3); RED CELL DISTRIBUTION WIDTH 13.8 % (9.6-15.2)
[2021-07-26 05:04] LABS: CHLORIDE 108 mmol/L (98-107); CREATININE 0.73 mg/dL (0.55-1.02)
[2021-07-26 05:05] LABS: ANION GAP 6 mmol/L (5-15); CALCIUM 8.8 mg/dL (8.5-10.1)
[2021-07-26 09:15] VITALS: BP 120/72
[2021-07-26] MEDS: FLUCONAZOLE 40 MG/ML ORAL SUSP PO SCH (09:26)
[2021-07-26] MEDS: THIAMINE 100MG TABLET PO SCH (09:26)
[2021-07-26] MEDS: ZINC SULFATE 220 MG CAPSULE PO SCH (09:27)
[2021-07-26] MEDS: ASCORBIC ACID 500 MG TABLET PO SCH ×2 (09:27→17:06)
[2021-07-26] MEDS: DOCUSATE 100 MG CAPSULE PO SCH (09:27)
[2021-07-26] MEDS: CHOLECALCIFEROL 5,000u TAB PO SCH (09:27)
[2021-07-26] MEDS: DEXAMETHASONE 4 MG/ML, 1ML IVPush SCH (09:27)
[2021-07-26] MEDS: SODIUM CHLORIDE FLUSH 10ML SYR IVF SCH ×2 (09:28→20:56)
[2021-07-26] MEDS: INSULIN GLARGINE 100 UNITS/ML, PEN SQ-INSULIN SCH ×2 (09:42→22:27)
[2021-07-26] MEDS: DOCUSATE 50 MG/5 ML, 10ML UDC NG SCH ×3 (09:43→13:04)
[2021-07-26 13:00] VITALS: BP 110/70
[2021-07-26 18:35] VITALS: BP 120/76
[2021-07-27 00:44] VITALS: BP 143/84
[2021-07-27] MEDS: ENOXAPARIN 60 MG/0.6 ML SQ SCH ×2 (04:34→16:05)
[2021-07-27] MEDS: INSULIN LISPRO 100 UNITS/ML, PEN SQ-INSULIN SCH ×5 (04:34→21:55)
[2021-07-27] MEDS: ASCORBIC ACID 500 MG TABLET PO SCH ×2 (08:00→16:05)
[2021-07-27 08:33] VITALS: BP 123/74
[2021-07-27] MEDS: DOCUSATE 100 MG CAPSULE PO SCH (08:54)
[2021-07-27] MEDS: CHOLECALCIFEROL 5,000u TAB PO SCH (08:55)
[2021-07-27] MEDS: ZINC SULFATE 220 MG CAPSULE PO SCH (08:55)
[2021-07-27] MEDS: THIAMINE 100MG TABLET PO SCH (08:55)
[2021-07-27] MEDS: SODIUM CHLORIDE FLUSH 10ML SYR IVF SCH ×2 (09:06→21:52)
[2021-07-27] MEDS: DEXAMETHASONE 4 MG/ML, 1ML IVPush SCH (09:07)
[2021-07-27] MEDS: INSULIN GLARGINE 100 UNITS/ML, PEN SQ-INSULIN SCH ×2 (09:11→21:53)
[2021-07-27] MEDS ORDERED: ACET325T26 PO (12:28)
[2021-07-27] MEDS ORDERED: METF500T17 PO (12:28)
[2021-07-27 12:57] VITALS: BP 127/83
[2021-07-27 20:00] VITALS: BP 123/75
[2021-07-28 01:16] VITALS: BP 131/81
[2021-07-28] MEDS: INSULIN LISPRO 100 UNITS/ML, PEN SQ-INSULIN SCH ×4 (04:00→22:51)
[2021-07-28] MEDS: ENOXAPARIN 60 MG/0.6 ML SQ SCH ×2 (04:14→15:52)
[2021-07-28 05:54] LABS: ANION GAP 5 mmol/L (5-15); CALCIUM 8.5 mg/dL (8.5-10.1); CHLORIDE 110 mmol/L (98-107); CREATININE 0.63 mg/dL (0.55-1.02)
[2021-07-28 06:02] LABS: BASOPHILS % (AUTO) 1 % (0-1); EOSINOPHILS % (AUTO) 0 % (1-7); LYMPHOCYTES % (AUTO) 14 % (22-44); MEAN CORPUSCULAR HEMOGLOBIN 30.2 pg (27.0-34.8); MEAN CORPUSCULAR HGB CONC 32.7 g/dL (32.4-35.8); MEAN PLATELET VOLUME 8.7 fL (7.4-10.4); MONOCYTES % (AUTO) 8 % (2-9); NEUTROPHILS % (AUTO) 77 % (42-75); PLATELET COUNT 136 x10^3/uL (130-400); RED BLOOD COUNT 4.04 x10^6/uL (3.82-5.3); RED CELL DISTRIBUTION WIDTH 13.7 % (9.6-15.2)
[2021-07-28 08:56] VITALS: BP 114/69
[2021-07-28] MEDS: ASCORBIC ACID 500 MG TABLET PO SCH ×2 (11:25→16:00)
[2021-07-28] MEDS: CHOLECALCIFEROL 5,000u TAB PO SCH (11:25)
[2021-07-28] MEDS: DOCUSATE 100 MG CAPSULE PO SCH (11:25)
[2021-07-28] MEDS: ZINC SULFATE 220 MG CAPSULE PO SCH (11:25)
[2021-07-28] MEDS: SODIUM CHLORIDE FLUSH 10ML SYR IVF SCH ×2 (11:39→22:52)
[2021-07-28 12:03] VITALS: BP 121/71
[2021-07-28] MEDS: INSULIN GLARGINE 100 UNITS/ML, PEN SQ-INSULIN SCH ×2 (12:37→22:51)
[2021-07-28 14:01] VITALS: BP 99/89
[2021-07-28 19:26] VITALS: BP 102/70
[2021-07-29 00:12] VITALS: BP 102/68
[2021-07-29] MEDS ORDERED: MAALOX/HYOSCYAMINE/LIDOCAINE 45 ML BTL PO ONE (00:30)
[2021-07-29] MEDS: INSULIN LISPRO 100 UNITS/ML, PEN SQ-INSULIN SCH ×3 (03:23→16:00)
[2021-07-29] MEDS: ENOXAPARIN 60 MG/0.6 ML SQ SCH (04:26)
[2021-07-29] MEDS: DOCUSATE 100 MG CAPSULE PO SCH (09:00)
[2021-07-29] MEDS: INSULIN GLARGINE 100 UNITS/ML, PEN SQ-INSULIN SCH (09:00)
[2021-07-29] MEDS: CHOLECALCIFEROL 5,000u TAB PO SCH (09:59)
[2021-07-29] MEDS: ASCORBIC ACID 500 MG TABLET PO SCH (09:59)
[2021-07-29] MEDS: ZINC SULFATE 220 MG CAPSULE PO SCH (09:59)
[2021-07-29] MEDS: SODIUM CHLORIDE FLUSH 10ML SYR IVF SCH (10:02)
[2021-07-29 13:22] VITALS: BP 121/75
== END 2021-07-29 16:11 | DRG 870 ==
LOC: ED 20:25 → EDIP 22:09 → 5SO 23:55 → CCU 07-18 10:02 → 4WST 07-23 10:42
PROVIDERS: ADMIT Emergency Medicine; ATTEND Internal Medicine
PROC: XW033E5 Introduction of Remdesivir Anti-infective into Peripheral Vein, Percutaneous Approach, New Technology Group 5 (ICD-10-PCS; 2021-07-15)
PROC: 5A09357 Assistance with Respiratory Ventilation, Less than 24 Consecutive Hours, Continuous Positive Airway Pressure (ICD-10-PCS; 2021-07-17)
PROC: 5A1955Z Respiratory Ventilation, Greater than 96 Consecutive Hours (ICD-10-PCS; principal; 2021-07-18)
PROC: 0BH17EZ Insertion of Endotracheal Airway into Trachea, Via Natural or Artificial Opening (ICD-10-PCS; 2021-07-18)
PROC: 02HV33Z Insertion of Infusion Device into Superior Vena Cava, Percutaneous Approach (ICD-10-PCS; 2021-07-18)
PROC: B548ZZA Ultrasonography of Superior Vena Cava, Guidance (ICD-10-PCS; 2021-07-18)
PROC: 5A0935A Assistance with Respiratory Ventilation, Less than 24 Consecutive Hours, High Flow/Velocity Cannula (ICD-10-PCS; 2021-07-18)
DX: A41.89 Other specified sepsis (principal); U07.1 COVID-19; J12.82 Pneumonia due to coronavirus disease 2019; J96.01 Acute respiratory failure with hypoxia; G93.41 Metabolic encephalopathy; R65.21 Severe sepsis with septic shock; E87.1 Hypo-osmolality and hyponatremia; I50.30 Unspecified diastolic (congestive) heart failure; Z99.11 Dependence on respirator [ventilator] status; E11.65 Type 2 diabetes mellitus with hyperglycemia; B37.9 Candidiasis, unspecified; Z80.42 Family history of malignant neoplasm of prostate; Z90.49 Acquired absence of other specified parts of digestive tract; Z79.899 Other long term (current) drug therapy; Z88.0 Allergy status to penicillin
CPT/HCPCS: 36415; 36573; 36600; 71045; 74018; 80048; 80053; 80076; 82728; 82803; 82962; 83036; 83605; 83615; 83735; 84100; 84145; 84478; 84484; 85014; 85018; 85025; 85379; 86140; 87040; 87070; 87081; 87205; 87400; 93005; 93306; 94002; 94003; 96374; 96375; G0378; J0696; J1100; J1265; J1650; J1940; J2250; J2405; J2704; J3010; J7060; J7120; U0005; C1751; J1815; J3262; J7030; J7050; U0003